=== PATIENT | female | born 1935 | race Caucasian/White ===

== ENCOUNTER → 2017-08-28 08:00 | Outpatient (REF) | payer MEDICARE, BC, SELFPAY ==
[2017-08-28 09:46] LABS: Color, Urine Yellow (Yellow); Glucose, Dipstick Normal (Normal); Ketone-Dipstick Negative (Negative); Leukocyte Esterase-Dipstick 100 /ul (Negative); Nitrite-Dipstick Negative (Negative); Occult Blood-Urine 10 /ul (Negative); Protein-Dipstick Negative (Negative); Urine Bilirubin Dipstick Negative (Negative); Urine Clarity Sl. Cloudy (Clear); Urine Urobilinogen Normal (Normal)
== END ==
LOC: OLS.DANBUR 08:00
PROVIDERS: Visit Provider Family Medicine
DX: N39.0 Urinary tract infection, site not specified (principal); R41.0 Disorientation, unspecified
CPT/HCPCS: 81002; 87086; 87088

== ENCOUNTER → 2017-11-16 11:33 | Outpatient (CLI) | payer MEDICARE, BC, SELFPAY ==
[2017-11-16 14:13] LABS: Absolute Lymphocyte Count 1.99 X10^3/ul (0.83-4.51); Absolute Neutrophil Count 5.4 X10^3/uL (2.0-7.7); Basophil# 0.02 X10^3/uL; Basophil% 0.3 % (0-1); Eosinophil# 0.08 X10^3/uL; Hematocrit 37.1 % (37-47); Hemoglobin 11.9 g/dl (12.0-15.0); Lymphocyte # 1.99 X10^3/ul (4.0); Lymphocyte % 24.9 % (19-41); Mean Corp Hgb Conc 32.1 g/gl (32-36); Mean Corpuscular Hgb 28.6 pg (27.0-32.0); Mean Corpuscular Volume 89.2 fL (81-99); Mean Platelet Vol. 9.1 fl (6.2-12.0); Monocyte# 0.51 X10^3/uL; Monocyte% 6.4 % (0-10); Neutrophil # 5.38 X10^3/uL (2.7-7.7); Neutrophil % 67.3 % (47-70); POSITIVE COUNT NO; POSITIVE DIFFERENTIAL NO; POSITIVE MORPHOLOGY NO; Platelet Count 180 K/mm3 (150-450); RBC Distribution Width CV 12.7 % (11.6-14.6); RBC Distribution Width SD 40.7 fl (35.1-43.9); Red Blood Count 4.16 M/mm3 (4.2-5.4)
[2017-11-16 14:50] LABS: ALB/GLOB Ratio 1.1 RATIO (0.9-2.4); AST(SGOT) 26 U/L (15-37); Alanine Aminotransfer ALT/SGPT 31 U/L (13-56); Albumin, Serum 3.3 g/dL (3.2-5.0); Alkaline Phosphatase 130 U/L (45-117); Anion Gap 7 (5-15); BUN 18 mg/dL (7-18); BUN/Creat Ratio 16.4 RATIO (10-20); Calcium,Total 8.3 mg/dL (8.5-10.1); Chloride 106 mmol/L (98-107); EST Glomerular Filtration Rate 51 mL/min (>60); Est Glom Filt Rate - Afr Amer 61 mL/min (>60); Globulin 3.1 g/dL (2.2-4.2); Glucose 216 mg/dL (74-106); Potassium 4.2 mmol/L (3.5-5.1); Protein, Total 6.4 g/dL (6.4-8.2); Sodium Level 140 mmol/L (136-145); Thyroid Stim Hormone (TSH) 1.52 uIU/mL (0.358-3.74)
== END ==
PROVIDERS: Family Provider Family Medicine; PCP Family Medicine; Visit Provider Family Medicine
DX: R42 Dizziness and giddiness (principal)
CPT/HCPCS: 36415; 80053; 84443; 85025

== ENCOUNTER 2018-05-18 03:04 | Emergency (ER) | payer MEDICARE, BC, SELFPAY ==
[2018-05-18 03:05] VITALS: BP 118/76; PULSE 83; RESP 19; TEMP 36.7; O2SAT 94; BMI 27.6
[2018-05-18 03:13] VITALS: O2SAT 95
--- NOTE | 2018-05-18 04:40 | RAD_ITS ---
RAD/Tibia & Fibula 2 Views IMPRESSION: Limited visualization of a ossific structure adjacent to the medial tibial plateau. Recommend correlation with patient's point tenderness. Dedicated knee radiographs series can be performed to further evaluate. Otherwise no acute fractures seen. Electronically Signed: Nimesh Moore, at 5:20 EDT Tel , Service support ,
--- NOTE | 2018-05-18 04:45 | ED.VISSUMM ---
- ER Visit Summary Date of Service: 05/18/18 Chief Complaint: Fall History of Present Illness: The patient is a 82 F presenting after fall. Patient got up to use the restroom and got tangled in her blankets and fell. She hit her leg on a rocking chair. Fall was unwitnessed. She has a history of dementia and is unable to provide history. She has bruising to her right lower leg. She denies complaints. Physical Examination: Vitals are stable. Patient is afebrile. Alert no acute distress. HEENT exam is unremarkable. Neck is nontender Lungs are clear and equal bilaterally. Heart is regular rate and rhythm. Abdomen is soft nontender nondistended. Extremities hematoma anterior right lower extremity Skin is warm and dry. No focal neurologic deficit. Remainder of exam is unremarkable. Emergency Department Course and Treatment: CT head and C-spine showed no acute process. Pelvis x-ray shows no acute process. Right tib-fib x-ray shows limited visualization of a ossific structure adjacent to the medial tibial plateau. Recommend correlation with patient's point tenderness. Dedicated knee radiographs series can be performed to further evaluate. Otherwise no acute fractures seen. Right knee x-ray was obtained and shows likely prior avulsion fracture medial collateral ligament region. Soft tissue swelling. No acute fractures identified. Patient is able to ambulate in the emergency department with a walker at her baseline. Advised to follow up with primary care physician. Advised to return to the ED for worsening complaints. Disposition: Discharge Impression: Mechanical fall This note was generated with [employer] dictation software. It may contain incorrect words, spelling, and punctuation that were not noted in review of the chart prior to signing ED Disposition - Plan for ED Patient: Chief Complaint: Fall Referrals: Mckayla Mckeon MD [Primary Care Provider] -
[2018-05-18 05:55] VITALS: BP 122/88; PULSE 68; RESP 18; O2SAT 98
[2018-05-18 07:24] VITALS: BP 124/78; PULSE 58; RESP 18; O2SAT 99
--- NOTE | 2018-05-18 07:36 | ED.DEP ---
ED Disposition - Plan for ED Patient: Chief Complaint: Fall Instructions: ED Mechanical Fall Referrals: Mckayla Mckeon MD [Primary Care Provider] -
== END 2018-05-18 07:54 | disposition intermediate care facility (04) ==
PROVIDERS: Emergency Provider Emergency Medicine; Family Provider Family Medicine; PCP Family Medicine
DX: S80.11XA Contusion of right lower leg, initial encounter (principal); W19.XXXA Unspecified fall, initial encounter; Y93.9 Activity, unspecified; Y92.9 Unspecified place or not applicable; F03.90 Unspecified dementia, unspecified severity, without behavioral disturbance, psychotic disturbance, mood disturbance, and anxiety; Z79.02 Long term (current) use of antithrombotics/antiplatelets; Z79.82 Long term (current) use of aspirin; Z79.899 Other long term (current) drug therapy
CPT/HCPCS: 70450; 72125; 72170; 73564; 73590; 99284

== ENCOUNTER → 2018-06-13 12:00 | Outpatient (REF) | payer MEDICARE, BC, SELFPAY | LOC: OLS.DANBUR 12:00 | PROVIDERS: Visit Provider Family Medicine | DX: R45.1 Restlessness and agitation (principal); R41.0 Disorientation, unspecified; R41.3 Other amnesia | CPT/HCPCS: 87086; 87088 ==

== ENCOUNTER → 2018-09-07 15:00 | Outpatient (REF) | payer MEDICARE, BC, SELFPAY ==
[2018-09-08 08:36] LABS: Color, Urine Yellow (Yellow); Glucose, Dipstick 1000 mg/dl (Normal); Ketone-Dipstick Negative (Negative); Leukocyte Esterase-Dipstick 500 /ul (Negative); Nitrite-Dipstick Negative (Negative); Occult Blood-Urine 10 /ul (Negative); Protein-Dipstick 30 mg/dl (Negative); Urine Bilirubin Dipstick Negative (Negative); Urine Clarity Sl. Cloudy (Clear); Urine Urobilinogen Normal (Normal)
== END ==
LOC: OLS.DANBUR 15:00
PROVIDERS: Visit Provider Family Medicine
DX: I48.91 Unspecified atrial fibrillation (principal); J44.9 Chronic obstructive pulmonary disease, unspecified; I10 Essential (primary) hypertension; E78.5 Hyperlipidemia, unspecified; F03.90 Unspecified dementia, unspecified severity, without behavioral disturbance, psychotic disturbance, mood disturbance, and anxiety
CPT/HCPCS: 81002; 87086; 87088

== ENCOUNTER → 2018-09-13 13:25 | Outpatient (REF) | payer MEDICARE, BC, SELFPAY ==
[2018-09-14 09:15] LABS: Bacteria 0 SEEN /hpf (None Seen); Mucous, Urine 0 SEEN /hpf (<or=2+); Red Blood Cells-Urine 0 SEEN /hpf (0-5)
[2018-09-14 09:46] LABS: Color, Urine Yellow (Yellow); Glucose, Dipstick 1000 mg/dl (Normal); Ketone-Dipstick Negative (Negative); Leukocyte Esterase-Dipstick 500 /ul (Negative); Nitrite-Dipstick Negative (Negative); Occult Blood-Urine 25 /ul (Negative); Protein-Dipstick 15 mg/dl (Negative); Specific Gravity, Urine 1.015 (1.002-1.030); Urine Bilirubin Dipstick Negative (Negative); Urine Clarity Cloudy (Clear); Urine Urobilinogen Normal (Normal)
[2018-09-14 10:04] LABS: Amorphous Sediment 2+; Squamous Epithelial Cells - UA 0-5 SEEN /hpf (5-10); White Blood Cells >100 SEEN /hpf (0-5)
== END ==
LOC: OLS.DANBUR 13:25
PROVIDERS: Visit Provider Family Medicine
DX: N39.0 Urinary tract infection, site not specified (principal)
CPT/HCPCS: 81001; 87086; 87088

== ENCOUNTER 2018-09-18 17:51 | Emergency (ER) | payer MEDICARE, BC, SELFPAY ==
[2018-09-18 17:53] VITALS: BP 110/77; PULSE 89; RESP 16; TEMP 35.7; O2SAT 96; BMI 27.4
--- NOTE | 2018-09-18 18:03 | EKG12_ITS ---
Test Reason : MENTAL HEALTH Blood Pressure : / mmHG Vent. Rate : 122 BPM Atrial Rate : 113 BPM P-R Int : 000 ms QRS Dur : 104 ms QT Int : 342 ms P-R-T Axes : 000 060 028 degrees QTc Int : 487 ms Suspect unspecified pacemaker failure Atrial fibrillation Incomplete right bundle branch block Nonspecific ST and T wave abnormality Abnormal ECG Confirmed by SUSIE BENOIT, ANGEL ([id number]), food editor FOREIGN FRAUSTO ([id number]) on 09/27/2018 8:19:39 AM Referred By: PATRICIA Confirmed By:ANGEL RICHARDS MD
[2018-09-18] MEDS: Haloperidol Lactate 5 MG/ML Vial IM ×3 (18:09→20:28)
[2018-09-18] MEDS: LORazepam 2 MG/ML Syringe 1 MG IV (18:09)
[2018-09-18 19:47] LABS: Absolute Lymphocyte Count 2.06 X10^3/ul (0.83-4.51); Absolute Neutrophil Count 5.3 X10^3/uL (2.0-7.7); Basophil# 0.02 X10^3/uL; Basophil% 0.2 % (0-1); Eosinophil# 0.02 X10^3/uL; Eosinophils% 0.2 % (0-5); Hematocrit 38.6 % (37-47); Hemoglobin 12.8 g/dl (12.0-15.0); Lymphocyte # 2.06 X10^3/ul (4.0); Mean Corp Hgb Conc 33.2 g/gl (32-36); Mean Corpuscular Hgb 29.4 pg (27.0-32.0); Mean Corpuscular Volume 88.7 fL (81-99); Mean Platelet Vol. 9.3 fl (6.2-12.0); Monocyte# 0.82 X10^3/uL; Monocyte% 9.9 % (0-10); Neutrophil # 5.31 X10^3/uL (2.7-7.7); Neutrophil % 64.5 % (47-70); Platelet Count 153 K/mm3 (150-450); RBC Distribution Width CV 12.4 % (11.6-14.6); RBC Distribution Width SD 39.7 fl (35.1-43.9); Red Blood Count 4.35 M/mm3 (4.2-5.4); White Blood Count 8.3 K/mm3 (4.4-11.0)
[2018-09-18 19:47] LABS: Mucous, Urine 0 SEEN /hpf (<or=2+); Red Blood Cells-Urine 0 SEEN /hpf (0-5); Squamous Epithelial Cells - UA 0 SEEN /hpf (5-10)
[2018-09-18 19:51] LABS: POSITIVE COUNT NO; POSITIVE DIFFERENTIAL NO; POSITIVE MORPHOLOGY NO
[2018-09-18 19:52] LABS: Color, Urine Yellow (Yellow); Glucose, Dipstick 250 mg/dl (Normal); Ketone-Dipstick Negative (Negative); Leukocyte Esterase-Dipstick 100 /ul (Negative); Nitrite-Dipstick Negative (Negative); Occult Blood-Urine Negative /ul (Negative); Protein-Dipstick Negative (Negative); Urine Bilirubin Dipstick Negative (Negative); Urine Clarity Sl. Cloudy (Clear); Urine Urobilinogen Normal (Normal)
--- NOTE | 2018-09-18 20:03 | CT_ITS ---
STUDY: CT BRAIN WITHOUT CONTRAST REASON FOR EXAM: Female, 82 years old. Altered level of cognition. Dementia. RADIATION DOSAGE (If Supplied By Facility): CTDIvol = ( 44.99 ) mGy, DLP = ( 796.11 ) mGycm TECHNIQUE: Transaxial CT imaging of the brain was performed without administration of intravenous contrast material. Individualized dose optimization techniques were used for this CT. COMPARISON: None. FINDINGS: Normal soft tissue structures. Normal calvarium. There is moderate cerebral atrophy with widening of the extra-axial spaces and ventricular dilatation. There are areas of decreased attenuation within the white matter tracts of the supratentorial brain, consistent with microvascular disease changes. Normal basal ganglia and thalami. Normal brainstem. There is mild cerebellar atrophy. There is no intracranial hemorrhage. There are no findings of an acute ischemic infarction. Normal visualized paranasal sinuses. CT/Brain/Head without Contrast IMPRESSION: Chronic involutional changes of the brain. Electronically Signed: Sy Mclaughlin MD at 21:26 EST , Service support ,
[2018-09-18 20:16] LABS: Bacteria 2+ /hpf (None Seen); White Blood Cells 0-5 SEEN /hpf (0-5)
[2018-09-18 20:27] LABS: Anion Gap 11 (5-15); BUN 20 mg/dL (7-18); Calcium,Total 9.6 mg/dL (8.5-10.1); Chloride 102 mmol/L (98-107); Creatinine, Serum 1.33 mg/dL (0.55-1.02); EST Glomerular Filtration Rate 41 mL/min (>60); Est Glom Filt Rate - Afr Amer 49 mL/min (>60); Estimated Creatinine Clearance 25.79 ml/min; Glucose 298 mg/dL (74-106); Sodium Level 138 mmol/L (136-145)
[2018-09-18] MEDS: LORazepam 2 MG/ML Syringe 1 MG IM (20:28)
--- NOTE | 2018-09-18 21:42 | ED.RN ---
[facility] ALREADY IN THE DEPARTMENT. NOTIFIED HER THAT THIS PT NEEDS EVALUATED BY [facility].
[2018-09-18 22:06] VITALS: RESP 16
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
[2018-09-19] VITALS: PULSE 89; RESP 14; O2SAT 98
--- NOTE | 2018-09-19 00:53 | ED.RN ---
[facility] FROM [facility] IS HERE NOW TO TAKE OVER FOR KEIRY [facility]. SHE IS EVALUATING THIS PT NOW.
--- NOTE | 2018-09-19 01:35 | ED.RN ---
SPOKE WITH BERTHA FROM [facility] ON PT UPDATE. CAREGIVER TOLD NO ACCEPTING FACILITY YET BUT TRYING FOR [facility]
[2018-09-19 02:00] VITALS: PULSE 80; RESP 16; O2SAT 100
[2018-09-19 04:00] VITALS: RESP 16
[2018-09-19 06:00] VITALS: PULSE 80; RESP 18; O2SAT 100
--- NOTE | 2018-09-19 06:43 | NURSING ---
ACCEPTED AT [facility]
--- NOTE | 2018-09-19 06:51 | ED.RN ---
spoke with latesha brooks rn and notified of pt transfer. rn verbalized understanding and given facility number
--- NOTE | 2018-09-19 07:11 | NURSING ---
CALLED [facility] FOR TRANSPORT. ETA IS 1 HR
[2018-09-19 07:32] VITALS: PULSE 82; RESP 16; O2SAT 100
[2018-09-19 08:01] VITALS: BP 157/117; PULSE 83; RESP 16; O2SAT 98
== END 2018-09-19 08:32 ==
LOC: ED 18:46
PROVIDERS: Emergency Provider Emergency Medicine; Family Provider Family Medicine; PCP Family Medicine
DX: F03.91 Unspecified dementia, unspecified severity, with behavioral disturbance (principal); I48.91 Unspecified atrial fibrillation; I25.2 Old myocardial infarction; I10 Essential (primary) hypertension; E78.00 Pure hypercholesterolemia, unspecified; Z79.82 Long term (current) use of aspirin; Z79.02 Long term (current) use of antithrombotics/antiplatelets; Z79.899 Other long term (current) drug therapy
CPT/HCPCS: 70450; 80048; 81001; 84484; 85025; 93005; 96372; 96374; 99285